=== PATIENT | female | born 1980 | race Caucasian/White ===

== ENCOUNTER 2019-11-05 07:48 | Outpatient (CLI) | payer MEDICAID, SELFPAY ==
--- NOTE | 2019-11-05 07:53 | USCV_ITS ---
Shanel Álvarez Age: 38 Gender: F : 1980 Exam Date: 11/05/2019 08:18 Ordering Phys: Clifford Soliz RN MSN Technologist: Jojo Oleary Exam Location: [facility] – [place] Indication: PRE GASTRIC SLEEVE BP: 148 / 73 HR: 86 Rhythm: Sinus Technical Quality: Adequate MEASUREMENTS (Male / Female) Normal Values 2D ECHO LV Diastolic Diameter PLAX 5.6 cm 4.2 - 5.9 / 3.9 - 5.3 cm LV Systolic Diameter PLAX 4.1 cm LV Chamber Size 5.7 cm IVS Diastolic Thickness 1.3 cm 0.6 - 1.0 / 0.6 - 0.9 cm IVS Systolic Thickness 1.4 cm LVPW Diastolic Thickness 0.9 cm 0.6 - 1.0 / 0.6 - 0.9 cm LVPW Systolic Thickness 1.5 cm RV Chamber Size 3.4 cm LVOT Diameter 2.0 cm LV Ejection Fraction 2D Teich 50.2 % LA Diameter 4.3 cm LA Width 3.8 cm LA Height 5.0 cm RA Width 3.7 cm RA Height 4.4 cm Aorta at Sinotubular Diameter 2.6 cm M-MODE LV Diastolic Diameter MM 6.1 cm 4.2 - 5.9 / 3.9 - 5.3 cm LV Systolic Diameter MM 4.5 cm LV Ejection Fraction MM Teich 50.9 % IVS Diastolic Thickness MM 1.4 cm 0.6 - 1.0 / 0.6 - 0.9 cm IVS Systolic Thickness MM 1.6 cm LVPW Diastolic Thickness MM 0.9 cm 0.6 - 1.0 / 0.6 - 0.9 cm LVPW Systolic Thickness MM 1.4 cm RV Diastolic Diameter MM 1.9 cm Aortic Annulus Diameter 2.6 cm LA Ao Ratio MM 1.7 MV E Point Septal Separation 1.1 cm DOPPLER AV Peak Velocity 149.0 cm/s LVOT Peak Velocity 78.0 cm/s AV Area Cont Eq vti 2.0 cm squared AV Area Cont Eq pk 1.7 cm squared MV Area PHT 3.4 cm squared Mitral E to A Ratio 0.9 MV E' Velocity 6.0 cm/s Mitral E to MV E' Ratio 11.4 Mitral E to LV E' Lateral Ratio 14.4 Mitral E to LV E' Septal Ratio 9.6 TV Peak E Velocity 64.0 cm/s PV Peak Velocity 84.0 cm/s FINDINGS Left Ventricle Normal left ventricular size, systolic function and wall thickness, with no regional wall motion abnormalities. Grade I/IV diastolic dysfunction (abnormal relaxation filling pattern), normal to mildly elevated filling pressures. Left ventricular ejection fraction is estimated at 55-60%. Right Ventricle The right ventricle is normal in size and function. Right Atrium The right atrium is normal in size. Left Atrium The left atrium is normal in size. Mitral Valve Structurally normal mitral valve without significant stenosis or prolapse. There is no mitral regurgitation. Aortic Valve Structurally normal aortic valve without significant sclerosis or stenosis. There is no aortic regurgitation. Tricuspid Valve Structurally normal tricuspid valve without significant stenosis or regurgitation. Pulmonary artery systolic pressure is normal. Pulmonic Valve Pulmonic valve not well visualized. Pericardium Normal pericardium without effusion. Aorta Normal ascending aorta dimension. CONCLUSIONS Normal left ventricular size, systolic function and wall thickness, with no regional wall motion abnormalities. Grade I/IV diastolic dysfunction (abnormal relaxation filling pattern), normal to mildly elevated filling pressures. Left ventricular ejection fraction is estimated at 55-60%. No change from August 18, 2018 Dr. Luis Carlos Newton MD (Electronically Signed) Final Date: 05 November 2019 14:42 S
== END 2019-11-05 07:49 | disposition home or self-care (01) ==
LOC: RAD 07:50
PROVIDERS: Family Provider Registered Nurse; Visit Provider Nurse Practitioner Family
DX: Z01.810 Encounter for preprocedural cardiovascular examination (principal); I51.89 Other ill-defined heart diseases
CPT/HCPCS: 93306

== ENCOUNTER 2019-11-17 08:23 | Outpatient (CLI) | payer MEDICAID, SELFPAY ==
--- NOTE | 2019-11-17 08:27 | NM_ITS ---
WS: [id number] NUCLEAR MEDICINE HIDA SCAN CLINICAL INFORMATION: RUQ ABDOMINAL PAIN TECHNIQUE: Following intravenous administration of mCi of technetium 99m mebrofenin, images of the ab domen were obtained over the course of 60 minutes. Next, gallbladder ejection fraction was determined by obtaining preprandial and one-hour postprandial images of the gallbladder following oral ingestio n of Ensure. COMPARISON: None. FINDINGS: Normal hepatic uptake at 5 minutes. Normal hepatic excretion. Common bile duct visualized by 10 to 15 minutes. No evidence of choledocholithiasis. Normal small bowel activity. Normal gallbladder visuali zed by 15 minutes. No evidence of acute cholecystitis. Gallbladder ejection fraction 74% within normal limits. No evidence of chronic cholecystitis. NM/NM hepatobiliary w phar* [id number] IMPRESSION: 1. No evidence of acute or chronic cholecystitis. 2. Gallbladder ejection fraction 74%.
== END 2019-11-17 08:24 | disposition home or self-care (01) ==
LOC: NM 08:23
PROVIDERS: Family Provider Registered Nurse; Visit Provider Nurse Practitioner Family
DX: R10.11 Right upper quadrant pain (principal)
CPT/HCPCS: 78227; A9537

== ENCOUNTER → 2019-12-14 13:48 | Outpatient (BNVA) | payer MEDICAID, SELFPAY | PROVIDERS: Family Provider Registered Nurse; Visit Provider Registered Nurse | DX: R68.89 Other general symptoms and signs (principal); J06.9 Acute upper respiratory infection, unspecified | CPT/HCPCS: 87804 ==

== ENCOUNTER → 2020-01-14 09:31 | Outpatient (BNVA) | payer MEDICAID, SELFPAY | PROVIDERS: Family Provider Registered Nurse; PCP Registered Nurse; Visit Provider Otolaryngology | DX: H60.501 Unspecified acute noninfective otitis externa, right ear (principal) | CPT/HCPCS: 99203; 99214 ==

== ENCOUNTER → 2020-03-16 10:43 | Outpatient (BNVA) | payer MEDICAID, SELFPAY | PROVIDERS: Family Provider Registered Nurse; PCP Registered Nurse; Visit Provider Registered Nurse | DX: E66.01 Morbid (severe) obesity due to excess calories (principal) | CPT/HCPCS: 80053; 80061; 82306; 82542; 82607; 82728; 82746; 83550; 83735; 84100; 85025; 87635 ==

== ENCOUNTER → 2020-08-07 10:43 | Outpatient (BNVA) | payer MEDICAID, SELFPAY | PROVIDERS: Family Provider Registered Nurse; PCP Registered Nurse; Visit Provider Registered Nurse | DX: Z98.84 Bariatric surgery status (principal); Z20.2 Contact with and (suspected) exposure to infections with a predominantly sexual mode of transmission | CPT/HCPCS: 80053; 82306; 82607; 85025 ==

== ENCOUNTER → 2021-05-30 11:33 | Outpatient (BNVA) | payer MEDICAID, SELFPAY | PROVIDERS: Family Provider Registered Nurse; PCP Registered Nurse; Visit Provider Registered Nurse | DX: E55.9 Vitamin D deficiency, unspecified (principal); Z98.84 Bariatric surgery status; E53.8 Deficiency of other specified B group vitamins; I10 Essential (primary) hypertension; L20.9 Atopic dermatitis, unspecified | CPT/HCPCS: 80053; 82306; 82607; 85025 ==

== ENCOUNTER → 2021-08-27 16:22 | Outpatient (BNVA) | payer MEDICAID, SELFPAY | PROVIDERS: Family Provider Registered Nurse; PCP Registered Nurse; Visit Provider Nurse Practitioner Family | DX: Z20.822 Contact with and (suspected) exposure to COVID-19 (principal) | CPT/HCPCS: 87635 ==

== ENCOUNTER → 2021-10-08 15:26 | Outpatient (BNVA) | payer OTHER, MEDICAID, SELFPAY | PROVIDERS: Family Provider Registered Nurse; PCP Registered Nurse; Visit Provider Registered Nurse | DX: Z02.6 Encounter for examination for insurance purposes (principal); S39.012A Strain of muscle, fascia and tendon of lower back, initial encounter; X58.XXXA Exposure to other specified factors, initial encounter | CPT/HCPCS: 80307 ==

== ENCOUNTER → 2022-03-19 09:17 | Outpatient (BNVA) | payer MEDICAID, SELFPAY | PROVIDERS: Family Provider Registered Nurse; PCP Registered Nurse; Visit Provider Nurse Practitioner Family | DX: R42 Dizziness and giddiness (principal) | CPT/HCPCS: 80053; 82607; 82728; 83550; 84439; 84443; 85025 ==

== ENCOUNTER → 2022-04-01 09:33 | Outpatient (BNVA) | payer MEDICAID, SELFPAY | PROVIDERS: Family Provider Registered Nurse; PCP Registered Nurse; Visit Provider Registered Nurse | DX: D50.9 Iron deficiency anemia, unspecified (principal) | CPT/HCPCS: 82728; 83550; 85025 ==

== ENCOUNTER → 2022-05-10 09:15 | Outpatient (BNVA) | payer MEDICAID, SELFPAY | PROVIDERS: Family Provider Registered Nurse; PCP Registered Nurse; Visit Provider Registered Nurse | DX: D50.9 Iron deficiency anemia, unspecified (principal); K59.00 Constipation, unspecified; Z98.84 Bariatric surgery status | CPT/HCPCS: 82728; 83550; 85025 ==

== ENCOUNTER → 2022-08-29 10:13 | Outpatient (BNVA) | payer MEDICAID, SELFPAY | PROVIDERS: Family Provider Registered Nurse; PCP Registered Nurse; Visit Provider Nurse Practitioner Family | DX: D50.9 Iron deficiency anemia, unspecified (principal); R42 Dizziness and giddiness; N94.6 Dysmenorrhea, unspecified | CPT/HCPCS: 83540; 85025 ==

== ENCOUNTER → 2022-12-02 10:08 | Outpatient (BNVA) | payer MEDICAID, SELFPAY | PROVIDERS: Family Provider Registered Nurse; PCP Registered Nurse; Visit Provider Obstetrics & Gynecology | DX: N92.1 Excessive and frequent menstruation with irregular cycle (principal) | CPT/HCPCS: 76830; 83001; 84146; 84443; 84703; 85025 ==

== ENCOUNTER → 2023-01-16 11:24 | Outpatient (BNVA) | payer MEDICAID, SELFPAY | PROVIDERS: Family Provider Registered Nurse; PCP Registered Nurse; Visit Provider Registered Nurse | DX: D50.9 Iron deficiency anemia, unspecified (principal); I10 Essential (primary) hypertension; E61.1 Iron deficiency | CPT/HCPCS: 82607; 83540; 85025 ==

== ENCOUNTER → 2023-09-08 15:35 | Outpatient (BNVA) | payer BC, MEDICAID, SELFPAY | PROVIDERS: Family Provider Registered Nurse; PCP Registered Nurse; Visit Provider Registered Nurse | DX: T14.90XA Injury, unspecified, initial encounter (principal); W54.0XXA Bitten by dog, initial encounter | CPT/HCPCS: 80053; 85025 ==

== ENCOUNTER 2024-03-16 08:41 | Emergency (ER) | payer BC, SELFPAY ==
[2024-03-16 08:46] VITALS: BP 201/127; PULSE 105; RESP 16; TEMP 36.8; O2SAT 94; BMI 39.9
--- NOTE | 2024-03-16 08:47 | ECG_ITS ---
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 Measurements Intervals [place] Rate: 105 P: 63 IA: 134 QRS: 56 QRSD: 73 T: 48 QT: 347 QTc: 459 Interpretive Statements SINUS TACHYCARDIA POSSIBLE RIGHT ATRIAL ENLARGEMENT [0.25mV P-WAVE] LEFT ATRIAL ENLARGEMENT [-0.15mV P-WAVE IN V1/V2] No previous ECG available for comparison Electronically Signed On 03-16-2024 16:49:29 CDT by Tutu Pratt M.D. [id number]
--- NOTE | 2024-03-16 08:50 | XR_ITS ---
WS: [id number] Exam: XR chest 1V portable [id number] Date/Time of Exam: 03/16/2024 8:50 AM Reason For Exam: dyspnea/cough Comparison 12/15/2016. Findings: The lungs are clear and fully expanded. Costophrenic angles are sharp. No infiltrates. Bronchovascula r relief appears normal. Cardiac silhouette is unremarkable. Bony elements are intact. XR/XR chest 1V portable [id number] IMPRESSION: Unremarkable chest radiograph.
--- NOTE | 2024-03-16 08:58 | W.ED.CHESTPA ---
HPI - Chest Pain General: Chief Complaint: Chest Pain Stated Complaint: Chesp pain Time Seen by Provider: 03/16/24 08:50 Source: patient Mode of arrival: ambulatory History of Present Illness: 43-year-old female presents emergency room with chest discomfort and generally not feeling well states her chest feels tight and heavy. She has no known history of coronary artery disease. She does have a history of previous gastric bypass. She is not having any chest discomfort at this time. There is no radiation to the neck back or arms. She did feel some palpitation like symptoms as well as a squeezing sensation in her chest lasted a few seconds she has not had any further symptoms now. MD complaint: chest pain Onset (ago): minute(s) Timing of current episode: episodic Prior episodes: No Onset: during rest Pain location: substernal Pain radiation: none Severity: mild Quality: tightness Relieving factors: nothing Exacerbating factors: nothing Associated symptoms: Deny abdominal pain, diaphoresis, dyspnea, fever(s), leg edema, nausea, palpitations, sense of impending doom, syncope or vomiting Treatment prior to arrival: none Review of Systems Const: Denies: fever(s), chills or diaphoresis Card: Denies: chest pain, palpitations or syncope Resp: Denies: dyspnea GI: Denies: abdominal pain, nausea or vomiting : Denies: dysuria, urinary frequency or urinary urgency Musc: Denies: neck pain or back pain Skin/Breast: Denies: rash PFSH ED PFSH: Medical History Anxiety Posttraumatic stress disorder HTN (hypertension) Sleep apnea Back pain Carpal tunnel syndrome History of HPV infection Depression Hx of intravenous drug use in remission Remission since 2017 Surgical History History of prior ablation treatment History of gastric bypass S/P carpal tunnel release S/P section S/P hernia repair Family History Mother FH: CABG (coronary artery bypass surgery) Heart disease Uterine cancer Breast cancer Stroke Hypertension Family/Other Heart disease Maternal aunt Ovarian cancer maternal Stroke maternal aunts Hypertension Maternal aunts Diabetes Maternal aunt type 1 Daughter Diabetes type 2 Other Cancer Denies family history of Colon cancer Social History Smoking and tobacco/nicotine status: former use of tobacco/nicotine Quit status (tobacco/nicotine): has quit using Year quit tobacco: 2017 Alcohol intake: current Alcohol intake frequency: other Substance/Drug Use: never Adopted: No Caregiver/support person: No Lives independently: No Household members: significant other and children service: No Current occupational status: employed Sexually active: Yes Do you think of yourself as: Straight/Heterosexual Current gender identity: Female Physical Exam Const: COMMON NORMALS: no acute distress GENERAL APPEARANCE: cooperative and comfortable ORIENTATION/CONSCIOUSNESS: Yes awake, Yes oriented to person, Yes oriented to place and Yes oriented to time HENMT: COMMON NORMALS: normocephalic, atraumatic and hearing grossly normal bilaterally HEAD & SCALP: normocephalic and atraumatic Resp: COMMON NORMALS: normal respiratory effort, No retractions, No use of accessory muscles and clear to auscultation bilaterally AUSCULTATION: clear to auscultation bilaterally Cardio: COMMON NORMALS: regular rate, regular rhythm and No murmurs present (Cardio) RATE: regular rate RHYTHM: regular rhythm GI: COMMON NORMALS: Soft to palpation and No hepatosplenomegaly present AUSCULTATION: Yes normoactive bowel sounds PALPATION: Yes Soft to palpation, No Tenderness to palpation present (GI), No Guarding due to palpation present (GI) and Yes No hepatosplenomegaly present Extremity: COMMON NORMALS: normal to inspection, capillary refill normal, no clubbing, cyanosis or edema, no calf tenderness and no pedal edema Neuro: SENSORIUM/ORIENTATION: Yes oriented to person, Yes oriented to place and Yes oriented to time Skin: COMMON NORMALS: no rashes or lesions noted GENERAL SKIN EXAM: no rashes or lesions noted Course Vital Signs: Vital signs: Vital Signs Temperature 98.3 F 03/16/24 08:46 Pulse Rate 97 03/16/24 11:40 Respiratory Rate 16 03/16/24 08:46 Blood Pressure 198/102 03/16/24 11:40 Pulse Oximetry 93 03/16/24 11:40 Oxygen Delivery Me thod Room Air 03/16/24 11:40 MDM - Chest Pain Medical Decision Making Symptoms have not recurred while the patient is here she has not had any significant arrhythmias that we have noted. EKGs reviewed no acute changes noted. Her blood pressure does remain somewhat elevated. Labs and imaging reviewed no significant finding. Will start amlodipine 5 mg daily additionally Protonix 40 mg daily. Medical Records I reviewed the patient's medical records. Lab Data I reviewed the patient's lab results. 03/16/24 08:12 03/16/24 08:12 Radiology Impressions Chest X-Ray 03/16/24 08:50 IMPRESSION: Unremarkable chest radiograph. Laboratory Results WBC 13.63 10^3/uL (3.29-11.43) H 03/16/24 08:12 RBC 4.54 10^6/uL (3.85-5.65) 03/16/24 08:12 Hgb 12.90 g/dL (11.27-16.99) 03/16/24 08:12 Hct 40.4 % (36-47) 03/16/24 08:12 MCV 89.0 fl (85-98) 03/16/24 08:12 MCH 28.4 pg (27-33) 03/16/24 08:12 MCHC 31.9 g/dL (30-55) 03/16/24 08:12 RDW 14.2 % (12.1-15.1) 03/16/24 08:12 Plt Count 265 10^3/cmm (157-399) 03/16/24 08:12 MPV 10.0 fL (7.4-10.4) 03/16/24 08:12 Neut % (Auto) 83.0 % 03/16/24 08:12 Lymph % (Auto) 10.6 % 03/16/24 08:12 [place] % (Auto) 4.7 % 03/16/24 08:12 Eos % (Auto) 0.1 % 03/16/24 08:12 Baso % (Auto) 0.8 % 03/16/24 08:12 Neut # (Auto) 11.31 10^3/uL (1.8-7.7) H 03/16/24 08:12 Lymph # (Auto) 1.4 10^3/uL (0.8-4.8) 03/16/24 08:12 [place] # (Auto) 0.6 10^3/uL (0.2-0.9) 03/16/24 08:12 Eos # (Auto) 0.0 10^3/uL (0.0-0.8) 03/16/24 08:12 Baso # (Auto) 0.1 10^3/uL (0.0-0.1) 03/16/24 08:12 Nucleated RBC % (auto) 0 % 03/16/24 08:12 Nucleated RBCs # 0.0 /100WBC 03/16/24 08:12 D-Dimer 0.51 ug/mLFEU (0-0.59) 03/16/24 08:52 Sodium 140 mmol/L (136-145) 03/16/24 08:12 Potassium 4.2 mmol/L (3.5-5.1) 03/16/24 08:12 Chloride 102 mmol/L (98-107) 03/16/24 08:12 Carbon Dioxide 25 mmol/L (22-29) 03/16/24 08:12 Anion Gap 17.2 (5-19) 03/16/24 08:12 BUN 11 mg/dL (6-20) 03/16/24 08:12 Creatinine 0.7 mg/dL (0.5-0.9) 03/16/24 08:12 GFR Calculation 92.2 mL/min (90-130) 03/16/24 08:12 Glucose 87 mg/dL (65-115) 03/16/24 08:12 Calculated Osmolality 289 mOsm/kg (285-295) 03/16/24 08:12 Calcium 8.5 mg/dL (8.5-10.5) 03/16/24 08:12 Total Bilirubin 0.2 mg/dL (0.15-1.2) 03/16/24 08:12 AST 15 U/L (0-32) 03/16/24 08:12 ALT 9 U/L (0-33) 03/16/24 08:12 Alkaline Phosphatase 118 U/L (35-105) H 03/16/24 08:12 Troponin T Baseline < 6 ng/L (0-10) 03/16/24 08:12 Troponin T 120 Minute 6.00 ng/L (0-10) 03/16/24 10:06 Delta Troponin T 0.91930 ABS# (0-10) 03/16/24 10:06 Total Protein 7.7 g/dL (6.6-8.7) 03/16/24 08:12 Albumin 4.2 g/dL (3.5-5.2) 03/16/24 08:12 Globulin 3.5 g/dL (1.3-4.6) 03/16/24 08:12 All radiology interpretation(s) finalized by discharge Discharge Plan Discharge Patient Disposition: Home Clinical Impression: Atypical chest pain, HTN (hypertension), History of gastric bypass Condition: Stable Prescriptions: New amlodipine 5 mg tablet 5 mg PO DAILY Qty: 30 0RF Protonix 40 mg tablet,delayed release (DR/EC) 40 mg PO DAILY 56 Days Qty: 30 0RF Discharge Orders: Discharge ED (Routine); Ordered 03/16/24 Ordered By: Azar Carvalho Referrals: Jim Alvarez FNP [Primary Care Provider] - Discharge Diet: Usual diet Discharge Activity: Resume usual activity Patient Instructions: Opioid Safety, Pain Management Activity Restrictions/Additional Instructions: Thank you for choosing [facility] for your healthcare needs today. Please realize this is an emergency room and that we are providing you with a medical screening exam and this may not be complete and all inclusive of all the testing and or work up that you may need to determine your ailment or severity of your illness. It is very important that you follow up as instructed or that you return to the Emergency Department should you have concerns or if your condition changes or worsens in any way. You were seen today with elevated blood pressure and complaints of chest discomfort. Your D-dimer was negative your cardiac enzymes and EKG did not show any acute changes. Your chest x-ray was also normal. We recommend that you start Protonix 40 mg once daily in addition to this also recommend that you start amlodipine 5 mg daily you should follow-up with your primary care doctor within the week to reevaluate your blood pressure. Coding Level of Care Code ED Collection Technician for Hannah Nassar
[2024-03-16 09:00] VITALS: BP 201/127; PULSE 95; O2SAT 92
[2024-03-16 09:07] LABS: Basophils # 0.1 10^3/uL (0.0-0.1); Basophils % 0.8 %; Eosinophils % 0.1 %; Hematocrit 40.4 % (36-47); Lymphocytes # 1.4 10^3/uL (0.8-4.8); Lymphocytes % 10.6 %; Mean Corpuscular HGB Conc 31.9 g/dL (30-55); Mean Corpuscular Hemoglobin 28.4 pg (27-33); Monocytes # 0.6 10^3/uL (0.2-0.9); Monocytes % 4.7 %; Neutrophils # 11.31 10^3/uL (1.8-7.7); Nucleated Red Blood Cells % 0 %; Platelet Count 265 10^3/cmm (157-399); Red Blood Count 4.54 10^6/uL (3.85-5.65); Red Cell Distribution Width 14.2 % (12.1-15.1); White Blood Count 13.63 10^3/uL (3.29-11.43)
[2024-03-16 09:16] VITALS: BP 181/118; PULSE 104; O2SAT 95
[2024-03-16 09:41] LABS: Troponin(5th) Baseline < 6 ng/L (0-10)
[2024-03-16 09:44] LABS: Alanine Aminotransferase 9 U/L (0-33); Albumin Level 4.2 g/dL (3.5-5.2); Alkaline Phosphatase 118 U/L (35-105); Anion Gap 17.2 (5-19); Aspartate Amino Transferase 15 U/L (0-32); Blood Urea Nitrogen 11 mg/dL (6-20); Calcium 8.5 mg/dL (8.5-10.5); Carbon Dioxide 25 mmol/L (22-29); Chloride 102 mmol/L (98-107); Creatinine Clr Calc Pharmacy 129.8061; Globulin 3.5 g/dL (1.3-4.6); Glomerular Filtration Rate 92.2 mL/min (90-130); Glucose 87 mg/dL (65-115); Osmolality Calculated 289 mOsm/kg (285-295); Potassium 4.2 mmol/L (3.5-5.1); Sodium 140 mmol/L (136-145); Total Bilirubin 0.2 mg/dL (0.15-1.2); Total Protein 7.7 g/dL (6.6-8.7)
[2024-03-16 10:29] LABS: Troponin 5 2HR Delta 0.00001 ABS# (0-10)
--- NOTE | 2024-03-16 10:31 | PC.PHAR ---
PT STATES NO LONGER TAKES ANY VITAMINS AND SUPPLEMENTS OR ANY RX MEDICATIONS AT THIS TIME. 03/16/24
[2024-03-16 11:40] VITALS: BP 198/102; PULSE 97; O2SAT 93
[2024-03-16 11:49] LABS: D Dimer 0.51 ug/mLFEU (0-0.59)
--- NOTE | 2024-03-16 11:49 | ECG_ITS ---
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 Measurements Intervals [place] Rate: 91 P: 54 UT: 136 QRS: 33 QRSD: 72 T: 35 QT: 378 QTc: 466 Interpretive Statements SINUS RHYTHM LEFT ATRIAL ENLARGEMENT [-0.15mV P-WAVE IN V1/V2] Compared to ECG 03/16/2024 08:47:00 Sinus tachycardia no longer present Electronically Signed On 03-16-2024 16:51:56 CDT by Tutu Pratt M.D. [id number]
== END 2024-03-16 13:39 | disposition home or self-care (01) ==
PROVIDERS: Emergency Provider Family Medicine; Family Provider Registered Nurse; PCP Registered Nurse
DX: R07.89 Other chest pain (principal); I10 Essential (primary) hypertension; Z98.84 Bariatric surgery status; Z87.891 Personal history of nicotine dependence
CPT/HCPCS: 36415; 71045; 80053; 84484; 85025; 85378; 93005; 99285

== ENCOUNTER 2024-04-02 07:01 | Outpatient (CLI) | payer BC, SELFPAY ==
--- NOTE | 2024-04-02 | ECG_ITS ---
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 Interpretive Statements NAME OF STUDY: LEXISCAN SESTAMIBI STRESS TEST INDICATION: Atypical Chest Pain, PROCEDURE: At the baseline, the EKG revealed normal sinus rhythm with a normal ST Ts. The baseline heart was 69 bpm with a blood pressue of 155/88 mm of Hg Lexiscan was infused over a period of 20 seconds. A total of 0.4 milligrams of Lexiscan was infused. The stress phase was continued for a total of 5 minutes. Heart rate at the end of the stress phase was 92 bpm with a blood pressure 133/78 mm of Hg. The EKG at the peak infusion revealed no significant changes. Sestamibi was injected 20 seconds after the Lexiscan infusion. Heart rate at the end of the recovery phase was 86 bpm with a blood pressure of 139/74 mm of Hg. CONCLUSION: 1. No significant EKG changes with the LexiScan infusion 2. No LexiScan induced chest pain or cardiac arrhythmia 3. Normal blood pressure and heart rate response 4. Sestamibi/sestamibi perfusion scan pending; see separate report. Electronically Signed On 04-02-2024 19:51:40 CDT by Victorina Pope M.D. [id number]
[2024-04-02 07:30] VITALS: BMI 41.6
--- NOTE | 2024-04-02 07:34 | NMCV_ITS ---
NM alberto perf SPECT r/s* [id number] Shanel Álvarez Age: 43 Gender: F : 1980 Exam Date: 04/02/2024 07:34 Ordering Phys: Azar Carvalho DO Technologist: MADAN Gusman Exam Location: [facility] Indications: CP, SOB STRESS TEST Please see separate stress test report in [facility] for full findings IMAGE PROTOCOL Rest/Stress 1 Lexiscan Day Radiopharmaceutical Dose (mCi) Administration Site Administered by Rest: Tc-99m 10.9 IV MADAN Gusman Sestamibi Stress:Tc-99m 32.9 IV MADAN Gusman Sestamibi Rest: 02-Apr-2024 60 Discovery 630 Stress: 02-Apr-2024 30 Discovery 630 0.4mg Lexiscan. Images obtained in supine and prone position. SPECT RESULTS Technical Quality: Good Raw Data Analysis: Normal Image Corrections: No attenuation or motion correction applied Summed Stress Score: 7 Summed Rest Score: 6 Summed Difference Score: 2 PERFUSION FINDINGS There is a medium sized, moderate intensity, partially reversible perfusion defect seen in the inferior wall. This is consistent with medium sized area of prior infarct with small to medium sized area of linda-infarct ischemia seen in the RCA territory. FUNCTIONAL RESULTS (calculated via Gated SPECT) Stress Image LV EF (%): 59 Stress EDV (mL):153 TID: 1.08 Stress ESV (mL):63 FUNCTIONAL FINDINGS: There is normal left ventricular systolic function. IMPRESSIONS 1. Abnormal myocardial perfusion imaging with medium sized area of prior infarct with small to medium sized area of linda-infarct ischemia in RCA territory. 2. LV systolic function is normal Tutu Pratt MD (Electronically Signed) Final Date: 02 April 2024 10:21 S
[2024-04-02 09:43] VITALS: BP 139/74; PULSE 88
[2024-04-02] MEDS: regadenoson 0.4 Mg/5 ml Syringe 0.400000000000000022 MG IVP (11:40)
== END 2024-04-02 07:02 | disposition home or self-care (01) ==
PROVIDERS: Family Provider Registered Nurse; PCP Registered Nurse; Visit Provider Family Medicine
DX: R94.39 Abnormal result of other cardiovascular function study (principal); R07.89 Other chest pain
CPT/HCPCS: 36415; 78452; 93017; 96374; A9500; J2785

== ENCOUNTER 2024-07-12 16:19 | Outpatient (CLI) | payer BC, SELFPAY ==
[2024-07-12 16:46] LABS: Basophils # 0.1 10^3/uL (0.0-0.1); Basophils % 0.8 %; Eosinophils # 0.1 10^3/uL (0.0-0.8); Eosinophils % 1.1 %; Hematocrit 40.7 % (36-47); Lymphocytes # 2.6 10^3/uL (0.8-4.8); Lymphocytes % 22.1 %; Mean Corpuscular HGB Conc 31.4 g/dL (30-55); Mean Corpuscular Hemoglobin 29.4 pg (27-33); Mean Corpuscular Volume 93.6 fl (85-98); Mean Platelet Volume 10.5 fL (7.4-10.4); Monocytes # 0.6 10^3/uL (0.2-0.9); Monocytes % 5.2 %; Neutrophils # 8.19 10^3/uL (1.8-7.7); Neutrophils % 70.3 %; Nucleated Red Blood Cells % 0 %; Platelet Count 303 10^3/cmm (157-399); Red Blood Count 4.35 10^6/uL (3.85-5.65); White Blood Count 11.64 10^3/uL (3.29-11.43)
[2024-07-12 16:57] LABS: INR 0.99 (0.8-1.2)
[2024-07-12 17:02] LABS: Anion Gap 15.3 (5-19); Blood Urea Nitrogen 11 mg/dL (6-20); Calcium 9.1 mg/dL (8.5-10.5); Carbon Dioxide 27 mmol/L (22-29); Chloride 103 mmol/L (98-107); Glomerular Filtration Rate 92.2 mL/min (90-130); Glucose 90 mg/dL (65-115); Osmolality Calculated 291 mOsm/kg (285-295); Potassium 4.3 mmol/L (3.5-5.1); Sodium 141 mmol/L (136-145)
== END 2024-07-12 16:20 | disposition home or self-care (01) ==
LOC: LAB 16:20
PROVIDERS: Family Provider Registered Nurse; PCP Registered Nurse; Visit Provider Internal Medicine Cardiovascular Disease
DX: R06.02 Shortness of breath (principal); Z79.01 Long term (current) use of anticoagulants; I25.118 Atherosclerotic heart disease of native coronary artery with other forms of angina pectoris; I48.91 Unspecified atrial fibrillation
CPT/HCPCS: 36415; 80048; 85025; 85610; 86850; 86900

== ENCOUNTER 2024-07-15 07:17 | Outpatient (CLI) | payer BC, SELFPAY ==
[2024-07-15] VITALS (12 sets, daily range): BP systolic 113–169; BP diastolic 70–99; PULSE 70–92; RESP 14–18; TEMP 36.9; O2SAT 92–99; BMI 42.1
[2024-07-15] MEDS: diphenhydrAMINE 50 mg Capsule PO (07:30)
[2024-07-15] MEDS: aspirin 325 mg Tablet PO (07:30)
--- NOTE | 2024-07-15 08:17 | W.PM.OPSUD ---
Surgery/Procedure H&P Update DATE OF PROCEDURE: July 15, 2024 DATE H&P PERFORMED: 06/29/24 H&P UPDATE INFORMATION: I have reviewed H&P completed within last 30 days, I have examined patient prior to procedure and No changes to prior documentation PREOP DIAGNOSIS: Possible ASHD PRIMARY INDICATION FOR PROCEDURE: Abnormal Myocardial perfusion imaging, recurrent syncope PLANNED PROCEDURE: Operation Date: 07/15/24 08:30 Proposed Procedures p Cardiac Catheterization(Left) - Victorina Pope MD PATIENT REASSESSED PRIOR TO SEDATION, WITH NO CHANGE NOTED: Yes PHYSICAL EXAM: alert, oriented x 3, clear to auscultation bilaterally and regular rate & rhythm AIRWAY EVAL/ANESTHESIA PLAN: normal airway, see other exam findings, ASA III, Monitored Anesthesia, Local Anesthesia, Risks, benefits & alternatives of sedation and/or procedure discussed and Patient agrees to continue as planned
--- NOTE | 2024-07-15 08:30 | XACV_ITS ---
Exam Room: 2 Ht: 160 cm Wt: 108 kg BSA: 2.25 m2 Gender: Female : 1980 Any Known Allergies: Other Exam Priority: Routine Procedure(s): Procedure Description: Diagnostic procedure Procedure Description: Left Heart Catheterization Procedure Description: Left ventriculography Procedure Description: Coronary Angiography Niko VILLEGAS; Diagnostic Cath Status: Elective Diagnostic Findings * The left anterior descending artery and the circumflex artery were found to have separate ostia. No left main as such was noted. * The left anterior descending artery is a medium to large caliber vessel which appears to wraparound the LV apex minimally. No significant stenotic lesions were noted on the vessels. * The left circumflex artery is a relatively large caliber dominant vessel with no significant stenotic lesions. * The right coronary artery is a small to medium caliber nondominant vessel with no significant stenotic lesions. Conclusions 1. 43-year-old white female with history of hypertension family history of premature heart disease, presenting with recurrent episodes of chest pain, palpitations and syncope. She had a Myocardial perfusion imaging which revealed areas of fixed and reversible defects mostly in the distribution of the right coronary artery. Because of the ongoing recurrent episodes of these symptoms, in order to further evaluate the coronary status, a cardiac catheterization was recommended. Patient underwent left heart catheterization with left and right coronary angiogram and LV angiogram today. The findings are as follows. 2. 1. Separate ostia for the left anterior descending artery and circumflex artery. 2. Left dominant coronary circulation. 3. No significant obstructive coronary artery disease. 4. Elevated LVEDP suggesting left-ventricular diastolic dysfunction. LVEDP was 20 mmHg. Diagnostic RX Recommendation: medical therapy and/or counseling LV EDP: 20 mmHg Ventriculography Ejection Fraction: 50.0 % Left Ventriculography Findings: * The LV gram was performed in the WELCH projection. The LV cavity appears to be of normal size. The LV ejection fraction was around 50%. No significantwall motion abnormalities were noted. No filling defects were seen. No significant mitral valve prolapse or mitral regurgitation. Pressures Phase:Rest AO : 125 / 88 ( 106 ) @ 10:29:00 AM 139 / 90 ( 105 ) @ 10:48:00 AM 139 / 57 ( 94 ) @ 10:48:00 AM LV : 137 / -7 / 18 @ 10:47:00 AM 135 / -4 / 20 @ 10:48:00 AM 134 / -4 / 20 @ 10:48:00 AM Valves Phase:DefaultPhase AV : 0.0 @ 9:52:50 AM AV Mean Gradient: 0.0 @ 9:52:50 AM Clinical Evaluation EBL: 5mL-10mL Procedural Details Pre-Procedure Time Out. Identified patient by full name and date of as verbalized by the patient/guarantor. Does the consent match the physician's order: Yes. Accurate & Complete Informed Consent: Yes. Inpatient/Outpatient History & Physical on Chart: Yes. If H&P is completed, is and addenduem needed: No; If yes, is the addendum complete: N/A. Visualize and Verify Site with Patient/Guarantor: N/A. Relevant Radiology Images available: Yes. Pre-op teaching completed and patient verbalized understanding. The risks, benefits, and alternatives of sedation and/or procedure were discussed by physician. The patient agrees to continue. Procedure started. [facility] Clinical Fraility Score: 3: Managing Well. Fan Runner Indications: Suspected CAD. Chest Pain Symptom Assessment: Atypical Angina. Correct patient, site and procedure confirmed by cath team. Current diagnosis: Chest Pain. PERRLA. 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 Lungs clear x 5 lobes. IV Site on Arrival: 20 gauge in the left anticubital. IV Fluids: 0.9% NaCl at KVO. 0 mL infused prior to soap slabber. Pre Procedural Pulses: bilateral dorsalis pedis was 3+. Pre Procedural Pulses: bilateral posterior tibial was 3+. Pre Procedural Pulses: right radial was 3+. Oxygen started at 2liters/min via nasal canula. right groin was prepped with chloroprep then draped in the usual sterile fashion. right radial was prepped with chloroprep then draped in the usual sterile fashion. Physician notified. Baseline sample Acquired. HR: 82 BPM. Current Diagnosis : Chest Pain. Physician arrived. Physician scrubbed in. Immediate Pre-Procedure Time Out. Correct Patient: Yes; Correct Procedure: Yes; Correct Site: Yes; Correct Patient Position: Yes; Correct Supplies: Yes; Dried Flammable Prep: Yes; Blood Products Available: N/A;. Lidocaine 1% infiltrated to the right radial. Lidocaine 1% infiltrated to the right radial. Arterial access obtained. A 5 tristanian Rei catheter in over wire. Multiple views taken of left coronary artery. Catheter removed over the exchange wire. A 5 tristanian TIG catheter in over wire. Multiple views taken of left coronary artery. Catheter redirected to the RCA. Multiple views taken of right coronary artery. Catheter removed over the exchange wire. A 5 tristanian Angled Pig catheter in over wire. EDP Sample taken: LV 137/-8,18; HR: 84 BPM; SpO2: 96%. LV gram performed in WELCH @ 10 mL/second for a total of 30 mL. EDP Sample taken: LV 135/-5,20; HR: 78 BPM; SpO2: 96%. Pullback taken: LV 134/-5,20; AO 139/90(105); Mean: 0mmHg, Peak to Peak: 0mmHg, SEP: 10sec/min; HR: 79 BPM; SpO2: 99%. Vital chart was stopped. Catheter removed over the exchange wire. A TR Band was successful obtaining hemostatsis at the Right Radial artery insertion site. PERRLA. 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 No VTE prophylaxis required. Medication's Wasted: Nitro = 49.7 mcg. Medication's Wasted: Lidocaine 1% = 10 mL. Medication's Wasted: Heparin = 1000 units. Complications: None. Estimated blood loss: 5mL-10mL. Responsiveness - Normal response to verbal stimuli; alert and oriented, PERRLA. Airway - Unaffected, no intervention required; spontaneous ventilation. Circulation: W/N/L, pulses unchanged. Nausea/Vomiting: No. Procedure completed. Patient transferred by wheelchair to CPRU. Access Site Site: Right Radial artery Sheath Size: 6 Fr Hemostasis Method: TR Band Hemostasis Success: Successful Procedure Medications Start: 9:06 AM Stop: 9:06 AM Medication: Fentanyl Amount: 50 mcg Route: I.V. Start: 9:14 AM Stop: 9:14 AM Medication: Versed Amount: 1 mg Route: I.V. Start: 9:18 AM Stop: 9:18 AM Medication: Versed Amount: 1 mg Route: I.V. Start: 9:20 AM Stop: 9:20 AM Medication: Fentanyl Amount: 25 mcg Route: I.V. Start: 9:21 AM Stop: 9:21 AM Medication: 0.9% Saline Amount: 250 ml Route: I.V. bolus Start: 9:25 AM Stop: 9:25 AM Medication: Verapamil Amount: 5 mg Route: I.A. Start: 9:25 AM Stop: 9:25 AM Medication: Nitrogylcerin Amount: 200 mcg Route: I.A. Start: 9:27 AM Stop: 9:27 AM Medication: Versed Amount: 1 mg Route: I.V. Start: 9:28 AM Stop: 9:28 AM Medication: Heparin Amount: 5000 units Route: I.V. Start: 9:33 AM Stop: 9:33 AM Medication: Fentanyl Amount: 25 mcg Route: I.V. Start: 9:36 AM Stop: 9:36 AM Medication: Morphine Amount: 2 mg Route: I.V. Start: 9:42 AM Stop: 9:42 AM Medication: Morphine Amount: 2 mg Route: I.V. Start: 9:44 AM Stop: 9:44 AM Medication: Nitrogylcerin Amount: 200 mcg Route: I.A. Start: 9:45 AM Stop: 9:45 AM Medication: Versed Amount: 1 mg Route: I.V. I, the attending physician, have reviewed and verified all procedure medications. Yes, all medications given per verbal order History/Risk Factors Hypertension: Yes Dyslipidemia: No Peripheral Arterial Disease (PAD): No Myocardial Infarction (SC): No Obesity: Yes Renal Disease: No Tobacco Use: Current/Recent(w/in 1 year) Prior Interventions PCI: No CABG: No Valve Surgery: No Report Signatures Finalized by Dr Victorina Pope MD [facility] on 07/15/2024 10:10 PM
[2024-07-15 08:45] LABS: HCG, Serum Qual Negative (Negative)
--- NOTE | 2024-07-15 10:00 | SUR.PHASEII ---
Received the patient back from the manager cardiac cath via wheelchair s/p Diagnostic [facility]. Patient ambulated to the cot without difficulty. A & 0 x 3. site monitor placed and vital signs obtained. TR band intact to the right wrist. No bleeding or hematoma noted. Palpable radial pulse. No other assessment changes noted from pre cath assessment. Family at bedside. No concerns voiced at this time.
--- NOTE | 2024-07-15 11:00 | SUR.PHASEII ---
Letting the air out of the TR band per protocol. No other changes noted at this time.
--- NOTE | 2024-07-15 12:00 | SUR.PHASEII ---
TR band off per protocol. Area cleansed with water and patted dry. A large band aid was applied to the site and loosely secured with coban. No bleeding or hematoma noted. Palpable radial pulse. No other assessment changes noted at this time.
== END 2024-07-15 07:18 | disposition home or self-care (01) ==
PROVIDERS: Family Provider Registered Nurse; PCP Registered Nurse; Visit Provider Internal Medicine Cardiovascular Disease
DX: I25.118 Atherosclerotic heart disease of native coronary artery with other forms of angina pectoris (principal); I10 Essential (primary) hypertension; Z79.82 Long term (current) use of aspirin; F41.9 Anxiety disorder, unspecified; G47.30 Sleep apnea, unspecified; F32.A Depression, unspecified; Z98.84 Bariatric surgery status; Z82.49 Family history of ischemic heart disease and other diseases of the circulatory system; F17.200 Nicotine dependence, unspecified, uncomplicated; Z79.01 Long term (current) use of anticoagulants
CPT/HCPCS: 36415; 84703; 93458; 96374; 96375; 99152; 99153; C1769; C1887; C1894; J1644; J2250; J2270; J3010; J3490; J7030; Q0163; Q9967

== ENCOUNTER 2024-08-18 14:31 | Emergency (ER) | payer OTHER, SELFPAY ==
[2024-08-18] VITALS (40 sets, daily range): BP systolic 131–185; BP diastolic 87–113; PULSE 79–98; RESP 12–26; TEMP 36.7; O2SAT 95–99; BMI 38.7
--- NOTE | 2024-08-18 14:54 | XRR_ITS ---
PROCEDURE INFORMATION: Exam: XR Chest Exam date and time: 08/18/2024 3:03 PM Age: 43 years old Clinical indication: Pain; Angina pectoris; Patient HX: High BP; Additional info: Chest pain TECHNIQUE: Imaging protocol: Radiologic exam of the chest. Views: 1 view. COMPARISON: CR XR chest 1V portable [id number] 03/16/2024 9:05 AM FINDINGS: Lungs: Unremarkable. No consolidation. Pleural spaces: Unremarkable. No pleural effusion. No pneumothorax. Heart/Mediastinum: Unremarkable. No cardiomegaly. Bones/joints: No acute bony abnormalities detected. XR/XR chest 1V portable [id number] IMPRESSION: Negative chest exam.
--- NOTE | 2024-08-18 14:54 | ECG_ITS ---
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 Measurements Intervals [place] Rate: 91 P: 30 IL: 137 QRS: 36 QRSD: 73 T: 42 QT: 374 QTc: 461 Interpretive Statements SINUS RHYTHM Compared to ECG 03/16/2024 11:49:28 Atrial abnormality no longer present Electronically Signed On 08-19-2024 12:12:04 CDT by Clay Ross M.D. [id number]
[2024-08-18 15:27] LABS: Basophils # 0.1 10^3/uL (0.0-0.1); Basophils % 0.6 %; Eosinophils # 0.1 10^3/uL (0.0-0.8); Eosinophils % 1.1 %; Hematocrit 39.7 % (36-47); Lymphocytes # 2.3 10^3/uL (0.8-4.8); Lymphocytes % 28.5 %; Mean Corpuscular Hemoglobin 29.1 pg (27-33); Mean Corpuscular Volume 90.8 fl (85-98); Mean Platelet Volume 10.2 fL (7.4-10.4); Monocytes # 0.4 10^3/uL (0.2-0.9); Monocytes % 5.4 %; Neutrophils # 5.04 10^3/uL (1.8-7.7); Neutrophils % 63.9 %; Nucleated Red Blood Cells % 0 %; Platelet Count 271 10^3/cmm (157-399); Red Blood Count 4.37 10^6/uL (3.85-5.65); Red Cell Distribution Width 13.2 % (12.1-15.1)
[2024-08-18 15:41] LABS: Troponin(5th) Baseline < 6 ng/L (0-10)
[2024-08-18 15:50] LABS: Alanine Aminotransferase 9 U/L (0-33); Albumin Level 4.4 g/dL (3.5-5.2); Alkaline Phosphatase 117 U/L (35-105); Anion Gap 16.5 (5-19); Aspartate Amino Transferase 13 U/L (0-32); Blood Urea Nitrogen 10 mg/dL (6-20); Calcium 8.7 mg/dL (8.5-10.5); Carbon Dioxide 25 mmol/L (22-29); Chloride 103 mmol/L (98-107); Creatinine Clr Calc Pharmacy 154.1285; Globulin 2.8 g/dL (1.3-4.6); Glomerular Filtration Rate 110.2 mL/min (90-130); Glucose 88 mg/dL (65-115); Osmolality Calculated 288 mOsm/kg (285-295); Potassium 4.5 mmol/L (3.5-5.1); Sodium 140 mmol/L (136-145); Thyroid Stimulating Hormone 1.53 uIU/mL (0.27-4.20); Total Bilirubin 0.2 mg/dL (0.15-1.2); Total Protein 7.2 g/dL (6.6-8.7)
--- NOTE | 2024-08-18 15:56 | W.ED.CHESTPA ---
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 Patient sees Dr. Pope and had a heart cath on 926, blood pressure over in surgery was 170/111 with a heart rate in the 100s. Patient says she feels better but is still not back to normal. Related Data Previous Rx's Medication Instructions Recorded amlodipine 10 mg tablet 10 mg PO DAILY 90 days #90 tabs 04/05/24 lisinopril 5 mg tablet 5 mg PO DAILY 30 days #30 tabs 05/31/24 metoprolol tartrate 25 mg tablet 25 mg PO BID 30 days #30 tabs 05/31/24 aspirin 81 mg tablet,delayed 81 mg PO DAILY #30 tabs 06/29/24 release (Adult Low Dose Aspirin) buspirone 10 mg tablet See Rx Instructions .Route 07/12/24 .COMPLEX #60 tabs isosorbide mononitrate 30 mg 30 mg PO DAILY #30 tabs 07/15/24 tablet,extended release 24 hr Allergies Allergy/AdvReac Type Severity Reaction Status Date / Time meloxicam Allergy Intermediate RASH Verified 07/01/24 10:33 carbamazepine [From Tegretol] Allergy Unknown Verified 07/01/24 10:33 Sulfa (Sulfonamide Allergy Unknown Verified 07/01/24 10:33 Antibiotics) Review of Systems General: Reports: 10 or more systems reviewed and unremarkable except in HPI and below PFSH ED PFSH: Medical History Anxiety Posttraumatic stress disorder HTN (hypertension) Sleep apnea Back pain Carpal tunnel syndrome History of HPV infection Depression Hx of intravenous drug use in remission Remission since 2017 Surgical History History of prior ablation treatment History of gastric bypass S/P carpal tunnel release S/P section S/P hernia repair Family History Mother FH: CABG (coronary artery bypass surgery) Heart disease Uterine cancer Breast cancer Stroke Hypertension Family/Other Heart disease Maternal aunt Ovarian cancer maternal Stroke maternal aunts Hypertension Maternal aunts Diabetes Maternal aunt type 1 Daughter Diabetes type 2 Other Cancer Denies family history of Colon cancer Social History Smoking and tobacco/nicotine status: current every day tobacco/nicotine user Quit status (tobacco/nicotine): has quit using Year quit tobacco: 2017 Alcohol intake: current Alcohol intake frequency: other Substance/Drug Use: never Adopted: No Caregiver/support person: No Lives independently: No Household members: significant other and children service: No Current occupational status: employed Sexually active: Yes Do you think of yourself as: Straight/Heterosexual Current gender identity: Female Physical Exam Const: COMMON NORMALS: no acute distress, average body habitus, patient oriented x3, no limitations, healthy appearing, alert and well nourished HENMT: COMMON NORMALS: normocephalic, atraumatic, hearing grossly normal bilaterally, external ears normal, Normal external nose present and moist oral mucous membranes HEAD & SCALP: normocephalic and atraumatic NOSE: Normal external nose present EXTERNAL EAR: Yes external ears normal Neck/C-Spine: COMMON NORMALS: no JVD Chest: COMMONS NORMALS: normal inspection of the chest and normal palpation of entire chest wall Resp: COMMON NORMALS: normal respiratory effort, No retractions, No use of accessory muscles and clear to auscultation bilaterally AUSCULTATION: clear to auscultation bilaterally Cardio: COMMON NORMALS: no JVD, regular rate, regular rhythm, S1 normal heart sound present, S2 normal heart sound present, No gallops present (Cardio), No clicks present (Cardio), No murmurs present (Cardio) and No rub (Cardio) RATE: regular rate RHYTHM: regular rhythm HEART SOUNDS: S1 normal heart sound present and S2 normal heart sound present GI: COMMON NORMALS: Normal to inspection, nondistended, normoactive bowel sounds present, Soft to palpation, non-tender, No hepatosplenomegaly present and no masses PALPATION: Yes Soft to palpation and Yes No hepatosplenomegaly present Neuro: COMMON NORMALS: patient oriented x3 SENSORIUM/ORIENTATION: Yes alert Course Vital Signs: Vital signs: Vital Signs Temperature 98.1 F 08/18/24 14:42 Pulse Rate 91 08/18/24 17:35 Respiratory Rate 22 H 08/18/24 17:35 Blood Pressure 185/105 08/18/24 17:30 Pulse Oximetry 96 10/30/24 17:35 Oxygen Delivery Me thod Room Air 08/18/24 15:20 MDM - Chest Pain Medical Decision Making Patient lab work to include CBC CMP serial troponins, serial EKGs, chest x-ray all of which was essentially negative. Patient be set up for 30-day Holter monitor. Patient be referred back to her family practice doctor and/or curriculum specialist Medical Records I reviewed the patient's medical records. Lab Data I reviewed the patient's lab results. 08/18/24 15:10 08/18/24 15:10 Radiology Impressions Chest X-Ray 08/18/24 14:54 IMPRESSION: Negative chest exam. Laboratory Results WBC 7.90 10^3/uL (3.29-11.43) 08/18/24 15:10 RBC 4.37 10^6/uL (3.85-5.65) 08/18/24 15:10 Hgb 12.70 g/dL (11.27-16.99) 08/18/24 15:10 Hct 39.7 % (36-47) 08/18/24 15:10 MCV 90.8 fl (85-98) 08/18/24 15:10 MCH 29.1 pg (27-33) 08/18/24 15:10 MCHC 32.0 g/dL (30-55) 08/18/24 15:10 RDW 13.2 % (12.1-15.1) 08/18/24 15:10 Plt Count 271 10^3/cmm (157-399) 08/18/24 15:10 MPV 10.2 fL (7.4-10.4) 08/18/24 15:10 Neut % (Auto) 63.9 % 08/18/24 15:10 Lymph % (Auto) 28.5 % 08/18/24 15:10 [place] % (Auto) 5.4 % 08/18/24 15:10 Eos % (Auto) 1.1 % 08/18/24 15:10 Baso % (Auto) 0.6 % 08/18/24 15:10 Neut # (Auto) 5.04 10^3/uL (1.8-7.7) 08/18/24 15:10 Lymph # (Auto) 2.3 10^3/uL (0.8-4.8) 08/18/24 15:10 [place] # (Auto) 0.4 10^3/uL (0.2-0.9) 08/18/24 15:10 Eos # (Auto) 0.1 10^3/uL (0.0-0.8) 08/18/24 15:10 Baso # (Auto) 0.1 10^3/uL (0.0-0.1) 08/18/24 15:10 Nucleated RBC % (auto) 0 % 08/18/24 15:10 Nucleated RBCs # 0.0 /100WBC 08/18/24 15:10 Sodium 140 mmol/L (136-145) 08/18/24 15:10 Potassium 4.5 mmol/L (3.5-5.1) 08/18/24 15:10 Chloride 103 mmol/L (98-107) 08/18/24 15:10 Carbon Dioxide 25 mmol/L (22-29) 08/18/24 15:10 Anion Gap 16.5 (5-19) 08/18/24 15:10 BUN 10 mg/dL (6-20) 08/18/24 15:10 Creatinine 0.6 mg/dL (0.5-0.9) 08/18/24 15:10 GFR Calculation 110.2 mL/min (90-130) 08/18/24 15:10 Glucose 88 mg/dL (65-115) 08/18/24 15:10 Calculated Osmolality 288 mOsm/kg (285-295) 08/18/24 15:10 Calcium 8.7 mg/dL (8.5-10.5) 08/18/24 15:10 Magnesium 2.0 mg/dL (1.7-2.3) 08/18/24 15:10 Total Bilirubin 0.2 mg/dL (0.15-1.2) 08/18/24 15:10 AST 13 U/L (0-32) 08/18/24 15:10 ALT 9 U/L (0-33) 08/18/24 15:10 Alkaline Phosphatase 117 U/L (35-105) H 08/18/24 15:10 Troponin T Baseline < 6 ng/L (0-10) 08/18/24 15:10 Troponin T 120 Minute 6.00 ng/L (0-10) 08/18/24 17:31 Delta Troponin T 0.76006 ABS# (0-10) 08/18/24 17:31 Total Protein 7.2 g/dL (6.6-8.7) 08/18/24 15:10 Albumin 4.4 g/dL (3.5-5.2) 08/18/24 15:10 Globulin 2.8 g/dL (1.3-4.6) 08/18/24 15:10 TSH 1.53 uIU/mL (0.27-4.20) 08/18/24 15:10 All radiology interpretation(s) finalized by discharge Discharge Plan Discharge Patient Disposition: Home Clinical Impression: Heart palpitations Condition: Stable Prescriptions: No Action amlodipine 10 mg tablet 10 mg PO DAILY 90 Days Qty: 90 0RF aspirin [Adult Low Dose Aspirin] 81 mg tablet,delayed release (DR/EC) 81 mg PO DAILY Qty: 30 3RF metoprolol tartrate 25 mg tablet 25 mg PO BID 30 Days Qty: 30 2RF lisinopril 5 mg tablet 5 mg PO DAILY 30 Days Qty: 30 2RF buspirone 10 mg tablet See Rx Instructions .ROUTE .COMPLEX Qty: 60 0RF Dose Instruction: Take 1 tablet by mouth twice daily as needed for anxiety Rx Instructions: Take 1 tablet by mouth twice daily as needed for anxiety isosorbide mononitrate 30 mg tablet extended release 24 hr 30 mg PO DAILY Qty: 30 5RF Discharge Orders: Discharge ED (Routine); Ordered 08/18/24 Ordered By: Keenan Valdes Referrals: Jim Alvarez, VISION IMPAIRED TEACHER [Primary Care Provider] - 1 week Patient Instructions: Heart Palpitations (ED) Activity Restrictions/Additional Instructions: Your evaluation ER did not show any acute cause of your heart palpitations. You have been set up for 30-day event monitor. Case management should be calling you tomorrow to set up that. Please follow-up with your family practice physician and/or curriculum specialist as needed. Coding Level of Care Code ED Back Winder for Hannah Nassar
--- NOTE | 2024-08-18 16:54 | ECG_ITS ---
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 Measurements Intervals [place] Rate: 82 P: 32 NM: 141 QRS: 49 QRSD: 71 T: 47 QT: 399 QTc: 467 Interpretive Statements SINUS RHYTHM Compared to ECG 08/18/2024 14:35:52 No significant changes Electronically Signed On 08-18-2024 17:05:23 CDT by Clay Ross M.D. [id number]
[2024-08-18 17:55] LABS: Troponin 5 2HR Delta 0.00001 ABS# (0-10)
--- NOTE | 2024-08-20 07:47 | DCPLANNER ---
messaged heart for holter
== END 2024-08-18 18:20 | disposition home or self-care (01) ==
PROVIDERS: Emergency Provider Emergency Medicine; Family Provider Registered Nurse; PCP Registered Nurse
DX: R00.2 Palpitations (principal); Z79.82 Long term (current) use of aspirin; Z72.0 Tobacco use; I10 Essential (primary) hypertension
CPT/HCPCS: 71045; 80053; 83735; 84443; 84484; 85025; 93005; 99285

== ENCOUNTER → 2025-06-22 07:19 | Outpatient (BNVA) | payer OTHER, MEDICAID, SELFPAY | PROVIDERS: Family Provider Registered Nurse; PCP Registered Nurse; Visit Provider Registered Nurse | DX: R30.0 Dysuria (principal) | CPT/HCPCS: 81000 ==

== ENCOUNTER → 2025-08-15 11:18 | Outpatient (BNVA) | payer OTHER, MEDICAID, SELFPAY | PROVIDERS: Family Provider Registered Nurse; PCP Registered Nurse; Visit Provider Registered Nurse | DX: M25.50 Pain in unspecified joint (principal) | CPT/HCPCS: 80053; 85025; 86140 ==

== ENCOUNTER 2025-08-16 15:18 | Outpatient (CLI) | payer OTHER, MEDICAID, SELFPAY ==
--- NOTE | 2025-08-16 15:23 | XR_ITS ---
WS: [email or web address] Exam: XR knee LT 3V* [id number] Date/Time of Exam: 08/16/2025 3:29 PM Reason For Exam: M25.561 - Pain in LEFT knee No acute fracture. Moderate tricompartmental DJD. No joint effusion. Normal soft tissues. XR/XR knee LT 3V* [id number] IMPRESSION: 1. Moderate tricompartmental DJD. Kellgren-Gibran grade 1.
--- NOTE | 2025-08-16 15:23 | XR_ITS ---
WS: [email or web address] Exam: XR knee RT 3V* [id number] Date/Time of Exam: 08/16/2025 3:29 PM Reason For Exam: M25.561 - Pain in right knee No acute fracture. Moderate tricompartmental DJD. No joint effusion. Spurring of the posterior patella. Normal soft tissues. XR/XR knee RT 3V* [id number] IMPRESSION: 1. Moderate tricompartmental DJD. Kellgren-Gibran grade 2.
== END 2025-08-16 15:19 | disposition home or self-care (01) ==
LOC: RAD 15:19
PROVIDERS: Family Provider Registered Nurse; PCP Registered Nurse; Visit Provider Registered Nurse
DX: M25.561 Pain in right knee (principal); M25.562 Pain in left knee; M17.0 Bilateral primary osteoarthritis of knee; M76.891 Other specified enthesopathies of right lower limb, excluding foot
CPT/HCPCS: 73562